=== PATIENT | male | born 1990 | race Caucasian/White ===

== ENCOUNTER 2020-02-05 09:03 | Emergency (ER) | payer BC, OTHER ==
[~2020-02-05] VITALS: Ht 187.9 cm; Wt 141.1 kg
--- OUTSIDE RECORDS SUMMARY | 2020-02-05 09:09 | XMS REPORT ---
Author Author Ric DUEÑAS Organization [facility] IN Address [address] [place] [address] Care Team Providers Care Pipe Stem Sawyer Name Role Phone TAI DUEÑAS Unavailable PROBLEMS Unknown Problems ALLERGIES No Information ENCOUNTERS Encounter Location Date Diagnosis [facility] [address] [id number] [place], [place] [id number] Jun, Encounter for immunization Z23 [facility] [address] [id number] [place], [place] [phone] May, Encounter for immunization Z23 IMMUNIZATIONS Vaccine Route Administration Date Status TDAP (BOOSTRIX) IM Intramuscular Jun 11, 2017 Administered SOCIAL HISTORY Never Assessed REASON FOR VISIT Immunization(s); Indu Ryder RN PLAN OF CARE VITAL SIGNS MEDICATIONS Unknown Medications RESULTS No Results PROCEDURES Procedure Date Ordered Result Body Site TDAP (BOOSTRIX) Jun 11, 2017 SINGLE IMMUNIZATION ADMIN Jun 11, 2017 INSTRUCTIONS MEDICATIONS ADMINISTERED No Known Medications
--- OUTSIDE RECORDS SUMMARY | 2020-02-05 09:09 | XMS REPORT ---
Author Author Ric DUEÑAS Organization [facility] IN Address [address] [place] [address] Care Team Providers Care Vocational Training Instructor Name Role Phone TAI DUEÑAS Unavailable PROBLEMS Unknown Problems ALLERGIES No Information ENCOUNTERS Encounter Location Date Diagnosis [facility] [address] [id number] [place], [place] [phone] Jun, Encounter for immunization Z23 [facility] [address] [id number] [place], [place] [phone] May, Encounter for immunization Z23 IMMUNIZATIONS Vaccine Route Administration Date Status FLUARIX QUAD (3 AND UP) 2016 IM Intramuscular Jun 08, 2017 Ad ministered SOCIAL HISTORY Never Assessed REASON FOR VISIT Flu shot; Indu Ryder RN PLAN OF CARE VITAL SIGNS MEDICATIONS Unknown Medications RESULTS No Results PROCEDURES Procedure Date Ordered Result Body Site FLUARIX QUAD (3 AND UP) 2017 Jun 08, 2017 SINGLE IMMUNIZATION ADMIN Jun 08, 2017 INSTRUCTIONS MEDICATIONS ADMINISTERED No Known Medications
--- OUTSIDE RECORDS SUMMARY | 2020-02-05 09:09 | XMS REPORT | Continuity of Care Document ---
Author Organization Unknown Address Unknown Phone Unavailable Allergies There is no data. Medications There is no data. Problems There is no data. Procedures There is no data. Results There is no data. Encounters ACCT No. Visit Date/Time Discharge Status Pt. Type Provider Facility Loc./Unit Complaint [id number] 09/09/2018 10:00:00 09/09/2018 23:59: 59 CLS Outpatient [facility] [id number] 02/05/2020 09:04:[address] Emergency LETI SHEPARD, LISA Bragg [facility] BACK PAIN
--- OUTSIDE RECORDS SUMMARY | 2020-02-05 09:09 | XMS REPORT ---
Author Author Ric DUEÑAS Organization [facility] Address [address] [place] [address] Care Team Providers Care Road Worker Name Role Phone TAI DUEÑAS Unavailable PROBLEMS Unknown Problems ALLERGIES No Information ENCOUNTERS Encounter Location Date Diagnosis [facility] [address] [id number] [facility] [place] [id number] May, Encounter for immunization Z23 [facility] [address] [id number] [facility] [place] [id number] Apr, Other acute nonsuppurative otitis media of right ear, recurrence not specified H65.191 [facility] [address] [id number] [facility] [place] [phone] Jun, Encounter for immunization Z23 [facility] [address] [id number] [place] [phone] May, Encounter for immunization Z23 IMMUNIZATIONS Vaccine Route Administration Date Status FLULAVAL QUAD 0.5ML (6 MO & UP) 2017 IM Intramuscular May 13 18 Administered SOCIAL HISTORY Never Assessed REASON FOR VISIT Flu Shot.; RAINA Cox BSN PLAN OF CARE VITAL SIGNS MEDICATIONS Unknown Medications RESULTS No Results PROCEDURES Procedure Date Ordered Result Body Site FLULAVAL QUAD 0.5ML (6 MO AND UP) 2018 May 13, 2018 SINGLE IMMUNIZATION ADMIN May 13, 2018 INSTRUCTIONS MEDICATIONS ADMINISTERED No Known Medications MEDICAL (GENERAL) HISTORY Type Description Date Surgical History No know Surgical history
--- OUTSIDE RECORDS SUMMARY | 2020-02-05 09:09 | XMS REPORT ---
Author Ric Ramos Organization [facility] Address [address] [place] [address] Care Team Providers Care Ball Worker Name Role Phone TAI DUEÑAS Unavailable PROBLEMS Unknown Problems ALLERGIES No Known Allergies ENCOUNTERS Encounter Location Date Diagnosis [facility] [address] [id number] [facility] [place] [id number] Apr, Other acute nonsuppurative otitis media of right ear, recurrence not specified H65.191 [facility] [address] [id number] [place] [id number] Jun, Encounter for immunization Z23 [facility] [address] [id number] [place] [phone] May, Encounter for immunization Z23 IMMUNIZATIONS No Known Immunizations SOCIAL HISTORY Never Assessed REASON FOR VISIT C/o right ear pain and hearing loss for 3-4 days.; RAINA Cox BSN PLAN OF CARE Activity Details Follow Up prn Reason: VITAL SIGNS Height 72 in 2018-04-22 Weight 273.6 lbs 2018-04-22 Temperature 97.8 degrees Fahrenheit 2018-04-22 Heart Rate 88 bpm 2018-04-22 Respiratory Rate 18 2018-04-22 BMI 37.10 kg/m2 2018-04-22 Blood pressure systolic 124 mmHg 2018-04-22 Blood pressure diastolic 82 mmHg 2018-04-22 MEDICATIONS Medication Instructions Dosage Frequency Start Date End Date Duration S tatus Amoxicillin 500 MG Orally every 12 hrs 2 capsule 12h 13 Apr, 201 8 20 Apr, 2018 7 day(s) Active RESULTS No Results PROCEDURES No Known procedures INSTRUCTIONS MEDICATIONS ADMINISTERED No Known Medications MEDICAL (GENERAL) HISTORY Type Description Date Surgical History No know Surgical history
--- OUTSIDE RECORDS SUMMARY | 2020-02-05 09:09 | XMS REPORT ---
Author Author Ric COLINDRES [facility] [place] Address [address] [place] [address] Care Team Providers Care Nitrocellulose Maker Name Role Phone WILL COLINDRES Unavailable PROBLEMS Type Condition ICD9-CM Code [id number] Code Onset Dates Condition S tatus SNOMED Code Problem Elevated blood pressure I10 Active [id number] ALLERGIES No Known Allergies ENCOUNTERS Encounter Location Date Diagnosis [facility] [address] [id number] [place] [phone] Jul, Strep tonsillitis J03.00 ; Pharyngitis J 02.9 and Elevated blood pressure I10 [facility] [address] [id number] [place] [id number] May, URI with cough and congestion J06.9 and Acute bacterial conjunctivitis of right eye H10.31 [facility] [address] [id number] [place] [id number] May, Encounter for immunization Z23 [facility] [address] [id number] [place] [id number] Apr, Other acute nonsuppurative otitis media of right ear, recurrence not specified H65.191 [facility] [address] [id number] [place] [id number] Jun, Encounter for immunization Z23 [facility] [address] [id number] [place] [phone] May, Encounter for immunization Z23 IMMUNIZATIONS No Known Immunizations SOCIAL HISTORY Never Assessed REASON FOR VISIT sore throat since yesterday.; RAINA Cox BSN PLAN OF CARE Activity Details Follow Up if not improving or with pcp for regular fu . if not improving with PCP or reg follow up Reason: VITAL SIGNS Height 72 in 2018-07-12 Weight 286 lbs 2018-07-12 Temperature 98.3 degrees Fahrenheit 2018-07-12 Heart Rate 114 bpm 2018-07-12 Respiratory Rate 18 2018-07-12 BMI 38.78 kg/m2 2018-07-12 Blood pressure systolic 128 mmHg 2018-07-12 Blood pressure diastolic 92 mmHg 2018-07-12 MEDICATIONS Medication Instructions Dosage Frequency Start Date End Date Duration S tatus Amoxicillin 500 mg Orally 2 times a day 1 capsule 12h Jul, 10 day(s) Active Sudafed 30 MG Orally every 6 hrs 1 tablet as needed 6h Active RESULTS No Results PROCEDURES No Known procedures INSTRUCTIONS MEDICATIONS ADMINISTERED No Known Medications MEDICAL (GENERAL) HISTORY Type Description Date Surgical History No know Surgical history
--- NOTE | 2020-02-05 09:29 | ED GU-Male ---
General Chief Complaint: - Urinary Stated Complaint: BACK PAIN Nursing Triage Note: PT AMB TO TRIAGE WITH COMPLAINT OF LEFT SIDE FLANK PAIN, TESTICLE PAIN, AND NAUSEA. FEELS LIKE SOMEONE IS SQUEEZING HIS KIDNEY. PAIN STARTED AROUND MIDNIGHT. HAS TRIED TO HOT SHOWERS, MOTRIN, ETC. WITH NO RELIEF. WAS ABLE TO URINATE ONCE, BUT HAS HAD DIFFICULTY SINCE. Source: patient Exam Limitations: no limitations (GISELA RHOADES,) History of Present Illness Date Seen by Provider: Feb 05, 2020 Time Seen by Provider: 09:15 Initial Comments Mr. Patton is here to the ER for pain on his left flank. This pain woke him up this am around 12-1. He believes he has a kidney stone. He describes the pain as shooting and feels like "someone is squeezing [his] kidney and nards". The pain is only is his back and he rates it an 8/10 on the pain scale. He says this pain is constant. He also admits to nausea and vomiting, he "can't keep water down". Last emesis was 1.5 hours ago. He has tried Motrin, hot showers, heating pad, and drinking fluids but nothing has helped. The hot shower helped 1x, but repeat shower did not touch the pain. Denies any change in bowel movements, blood in stool or urine, dysuria, hematuria, or incontinence. He does notice increased urge to urinate, but when he does attempt to go, nothing comes out. Timing/Duration: this morning Severity/Quality: severe Location: left flank, groin Radiation: none Activities at Onset: sleep Prior Genitourinary Problems: none Modifying Factors: Worsens With Breathing, Worsens With Movement; Improves With Other ("everything" makes his pain worse) Associated Symptoms: No abdominal pain, No dysuria; lower back pain, nausea/vomiting; No urinary frequency (GISELA RHOADES,) Allergies and Home Medications Allergies Coded Allergies: No Known Drug Allergies (Unverified , 02/05/20) Patient Home Medication List Home Medication List Reviewed: Yes (GISELA RHOADES,) Review of Systems Review of Systems Constitutional: no symptoms reported EENTM: no symptoms reported Respiratory: short of breath (due to pain only) Cardiovascular: no symptoms reported Gastrointestinal: nausea, vomiting Genitourinary: denies dysuria, denies frequency; flank pain; denies hematuria, denies incontinence, denies pain; urgency Musculoskeletal: back pain Skin: no symptoms reported Psychiatric/Neurological: No Symptoms Reported Endocrine: No Symptoms Reported Hematologic/Lymphatic: No Symptoms Reported (GISELA RHOADES,) Past Znmgncp-[id number]-Bpnliw Hx Patient Social History Alcohol Use: Denies Use Recreational Drug Use: No Smoking Status: Never a Smoker Recent Foreign Travel: No Contact w/Someone Who Travel: No Recent Infectious Disease Expo: No Recent Hopitalizations: No (GISELA RHOADES,) Immunizations Up To Date Tetanus Booster (TDap): Unknown PED Vaccines UTD: Yes (GISELA RHOADES) Seasonal Allergies Seasonal Allergies: No (GISELA RHOADES) Past Medical History Surgeries: No Respiratory: No Cardiac: No Neurological: No Genitourinary: No Gastrointestinal: No Musculoskeletal: No Endocrine: No HEENT: No Cancer: No Psychosocial: No Integumentary: No Blood Disorders: No (GISELA RHOADES) Family Medical History Cancer (paternal side has hx of kidney cancer), Hypertension, Renal Disease (maternal grandfather on dialysis prior to ) (GISELA RHOADES,) Physical Exam Vital Signs Vital Signs - First Documented 02/05/20 09:07 Temp 36.9 Pulse 92 Resp 20 B/P (MAP) 134/101 (112) Pulse Ox 98 O2 Delivery Room Air (LISA LANDEROS MD) Vital Signs Capillary Refill : Less Than 3 Seconds (GISELA RHOADES,) Height, Weight, BMI Height: '" Weight: lbs. oz. kg; 39.00 BMI Method: General Appearance: WD/WN, moderate distress HEENT: PERRL/EOMI Neck: full range of motion Cardiovascular: regular rate, rhythm, no murmur Respiratory: lungs clear, normal breath sounds, no respiratory distress, no accessory muscle use Gastrointestinal: normal bowel sounds, soft; No guarding, No rebound; tenderness (mild tenderness to deep palpation in LLQ) Back: CVA tenderness (L) (mild on percussion) Neurologic/Psychiatric: alert, oriented x 3 Skin: normal color, warm/dry (GISELA RHOADES,) Progress/Results/Core Measures Suspected Sepsis Recent Fever Within 48 Hours: No Infection Criteria Present: None New/Unexplained Altered Menta: No Sepsis Screen: No Definite Risk SIRS Temperature: Pulse: 92 Respiratory Rate: 20 Blood Pressure 134 /101 Mean: 112 (GISELA RHOADES,) Results/Orders Lab Results Laboratory Tests Test 02/05/20 09:39 02/05/20 10:32 Range/Units White Blood Count 14.1 H 4.3-11.0 10^3/uL Red Blood Count 5.19 4.35-5.85 10^6/uL Hemoglobin 15.6 13.3-17.7 G/DL Hematocrit 43 40-54 % Mean Corpuscular Volume 83 80-99 FL Mean Corpuscular Hemoglobin 30 25-34 PG Mean Corpuscular Hemoglobin Concent 36 32-36 G/DL Red Cell Distribution Width 13.0 10.0-14.5 % Platelet Count 238 130-400 10^3/uL Mean Platelet Volume 9.5 7.4-10.4 FL Neutrophils (%) (Auto) 88 H 42-75 % Lymphocytes (%) (Auto) 9 L 12-44 % Monocytes (%) (Auto) 3 0-12 % Eosinophils (%) (Auto) 0 0-10 % Basophils (%) (Auto) 0 0-10 % Neutrophils # (Auto) 12.4 H 1.8-7.8 X 10^3 Lymphocytes # (Auto) 1.2 1.0-4.0 X 10^3 Monocytes # (Auto) 0.5 0.0-1.0 X 10^3 Eosinophils # (Auto) 0.0 0.0-0.3 10^3/uL Basophils # (Auto) 0.0 0.0-0.1 10^3/uL Neutrophils % (Manual) 89 % Lymphocytes % (Manual) 9 % Monocytes % (Manual) 2 % Blood Morphology Comment NORMAL Sodium Level 139 135-145 MMOL/L Potassium Level 3.7 3.6-5.0 MMOL/L Chloride Level 107 98-107 MMOL/L Carbon Dioxide Level 20 L 21-32 MMOL/L Anion Gap 12 5-14 MMOL/L Blood Urea Nitrogen 13 7-18 MG/DL Creatinine 1.14 0.60-1.30 MG/DL Estimat Glomerular Filtration Rate > 60 BUN/Creatinine Ratio 11 Glucose Level 136 H 70-105 MG/DL Calcium Level 9.7 8.5-10.1 MG/DL Corrected Calcium 9.3 8.5-10.1 MG/DL Total Bilirubin 0.7 0.1-1.0 MG/DL Aspartate Amino Transf (AST/SGOT) 47 H 5-34 U/L Alanine Aminotransferase (ALT/SGPT) 119 H 0-55 U/L Alkaline Phosphatase 84 40-136 U/L Total Protein 7.7 6.4-8.2 GM/DL Albumin 4.5 3.2-4.5 GM/DL Urine Color YELLOW Urine Clarity CLEAR Urine pH 6.5 5-9 Urine Specific Ballantine 1.020 1.016-1.022 Urine Protein TRACE H NEGATIVE Urine Glucose (UA) NEGATIVE NEGATIVE Urine Ketones NEGATIVE NEGATIVE Urine Nitrite NEGATIVE NEGATIVE Urine Bilirubin NEGATIVE NEGATIVE Urine Urobilinogen 0.2 < = 1.0 MG/DL Urine Leukocyte Esterase NEGATIVE NEGATIVE Urine RBC (Auto) NEGATIVE NEGATIVE Urine RBC NONE /HPF Urine WBC NONE /HPF Urine Squamous Epithelial Cells RARE /HPF Urine Crystals NONE /LPF Urine Bacteria NEGATIVE /HPF Urine Casts NONE /LPF Urine Mucus NEGATIVE /LPF Urine Culture Indicated NO (LISA LANDEROS MD) My Orders Orders - LISA LANDEROS MD Ua Culture If Indicated (02/05/20 09:21) Ed Iv/Invasive Line Start (02/05/20 09:31) Ns Iv 1000 Ml (Sodium Chloride 0.9%) (02/05/20 09:31) Cbc With Automated Diff (02/05/20 09:31) Comprehensive Metabolic Panel (02/05/20 09:31) Ketorolac Injection (Toradol Injection) (02/05/20 09:45) Ondansetron Injection (Zofran Injectio (02/05/20 09:45) Manual Differential (02/05/20 09:39) Ct Abd/Pelvis Wo(Kidney Stone) (02/05/20 11:00) (LISA LANDEROS MD) Medications Given in ED Current Medications Medications Dose Ordered Sig/Galen Route Start Time Stop Time Status Last Admin Dose Admin Ketorolac Tromethamine 30 mg ONCE ONCE IVP 02/05/20 09:45 02/05/20 09:46 DC 02/05/20 09:41 30 MG Ondansetron HCl 8 mg ONCE ONCE IVP 02/05/20 09:45 02/05/20 09:46 DC 02/05/20 09:40 8 MG (LISA LANDEROS MD) Vital Signs/I&O 02/05/20 09:07 Temp 36.9 Pulse 92 Resp 20 B/P (MAP) 134/101 (112) Pulse Ox 98 O2 Delivery Room Air (LISA LANDEROS MD) Vital Signs/I&O Capillary Refill : Less Than 3 Seconds (GISELA RHOADES,) Blood Pressure Mean: 112 Departure Impression Primary Impression: Left ureteral stone Additional Impression: Left sided abdominal pain Disposition: HOME, SELF-CARE Condition: Improved Departure-Patient Inst. Decision time for Depature: 11:29 (LISA LANDEROS MD) Referrals: NO,LOCAL PHYSICIAN (PCP/Family) Primary Care Physician Patient Instructions: Kidney Stones (DC) Add. Discharge Instructions: You have a small kidney stone that has dropped into your left ureter. You may still have some pain until the stone passes and then some lingering pain as your ureter heals. You may use ibuprofen up to 600 mg every 6 hours as needed for pain. Add hydrocodone as prescribed for pain not controlled by ibuprofen. Uses Zofran (ondansetron) as prescribed for nausea and vomiting. Strain your urine and examined with a filter closely to determine when the stone has dropped. Bring the stone with you to follow-up appointment your primary care doctor. Drink plenty of clear liquids. Return to care or call if you have any further problems or complications. All discharge instructions reviewed with patient and/or family. Voiced understanding. Scripts Ondansetron (Ondansetron Odt) 4 Mg Tab.rapdis 4 MG SL Q4H PRN for NAUSEA/VOMITING, #10 TAB Prov: LISA LANDEROS MD 02/05/20 GISELA RHOADES, Feb 05, 2020 09:29 LISA LANDEROS MD Feb 05, 2020 11:34
[2020-02-05] MEDS ORDERED: NS IV 1000 ML 1,000 ML IV SCH (09:31)
[2020-02-05] MEDS ORDERED: KETOROLAC 30 MG/ML VIAL IVP ONE (09:45)
[2020-02-05] MEDS ORDERED: ONDANSETRON 4 MG/2 ML (SDV) Z0FRAN IVP ONE (09:45)
[2020-02-05 09:51] LABS: BASOPHILS % (AUTO) 0 % (0-10); EOSINOPHILS % (AUTO) 0 % (0-10); HEMATOCRIT 43 % (40-54); HEMOGLOBIN 15.6 G/DL (13.3-17.7); LYMPHOCYTES # (AUTO) 1.2 X 10^3 (1.0-4.0); LYMPHOCYTES % (AUTO) 9 % (12-44); MEAN CORPUSCULAR HEMOGLOBIN 30 PG (25-34); MEAN CORPUSCULAR HGB CONC 36 G/DL (32-36); MEAN CORPUSCULAR VOLUME 83 FL (80-99); MEAN PLATELET VOLUME 9.5 FL (7.4-10.4); MONOCYTES # (AUTO) 0.5 X 10^3 (0.0-1.0); MONOCYTES % (AUTO) 3 % (0-12); NEUTROPHILS # (AUTO) 12.4 X 10^3 (1.8-7.8); NEUTROPHILS % (AUTO) 88 % (42-75); PLATELET COUNT 238 10^3/uL (130-400); WHITE BLOOD COUNT 14.1 10^3/uL (4.3-11.0)
[2020-02-05 10:03] LABS: ALBUMIN 4.5 GM/DL (3.2-4.5); CHLORIDE 107 MMOL/L (98-107); POTASSIUM 3.7 MMOL/L (3.6-5.0); SODIUM 139 MMOL/L (135-145)
[2020-02-05 10:04] LABS: CALCIUM 9.7 MG/DL (8.5-10.1)
[2020-02-05 10:06] LABS: GLUCOSE 136 MG/DL (70-105); TOTAL PROTEIN 7.7 GM/DL (6.4-8.2)
[2020-02-05 10:07] LABS: BILIRUBIN,TOTAL 0.7 MG/DL (0.1-1.0); CARBON DIOXIDE 20 MMOL/L (21-32)
[2020-02-05 10:09] LABS: ALKALINE PHOSPHATASE 84 U/L (40-136); CREATININE SERUM 1.14 MG/DL (0.60-1.30); GFR ESTIMATED > 60
[2020-02-05 10:10] LABS: BUN/CREATININE RATIO 11
[2020-02-05 10:12] LABS: ALANINE AMINOTRANSFERASE 119 U/L (0-55)
[2020-02-05 10:39] LABS: LYMPHOCYTES % (MANUAL) 9 %; MONOCYTES % (MANUAL) 2 %; NEUTROPHILS % (MANUAL) 89 %; RBC MORPH NORMAL
[2020-02-05 10:40] LABS: BILIRUBIN,URINE NEGATIVE (NEGATIVE); CLARITY,URINE CLEAR; COLOR,URINE YELLOW; GLUCOSE, URINE (UA) NEGATIVE (NEGATIVE); KETONES,URINE NEGATIVE (NEGATIVE); LEUKOCYTE ESTERASE ,URINE NEGATIVE (NEGATIVE); NITRITE,URINE NEGATIVE (NEGATIVE); PH,URINE 6.5 (5-9); PROTEIN,URINE TRACE (NEGATIVE)
[2020-02-05 10:55] LABS: BACTERIA,URINE NEGATIVE /HPF; SQUAMOUS EPITHELIAL CELL,UR RARE /HPF
--- NOTE | 2020-02-05 11:20 | Diagnostic Imaging Report ---
CT ABD/PELVIS WO(KIDNEY STONE) TECHNIQUE: Unenhanced CT imaging of the abdomen and pelvis was performed. 2-D reformats are created and submitted for interpretation. Automatic exposure controls were utilized to optimize patient dose. INDICATION: Left flank pain COMPARISON: None available. FINDINGS: Evaluation of the abdominal viscera is mildly limited without contrast. Lower chest: The lung bases are clear. No pericardial or pleural effusion. Peritoneum: No free intraperitoneal air or fluid. Liver and biliary system: Diffuse hepatic steatosis. No focal hepatic lesion. The gallbladder is normal. No biliary duct dilation. Spleen and Pancreas: Spleen is normal. Unenhanced pancreas is grossly normal. Adrenals: Normal. tract: Mild left hydronephrosis and hydroureter due to a 2 mm partially obstructing stone at the left UVJ. No right-sided renal or ureteral calculi. Urinary bladder is decompressed, limiting assessment. GI tract: Stomach is decompressed. No bowel obstruction. No pericolonic inflammatory changes. Normal appendix. Vasculature and Lymph nodes: Normal caliber aorta. No abdominal or pelvic lymphadenopathy. Musculoskeletal: No concerning osseous lesion. IMPRESSION: 1. Mild left hydronephrosis due to a 2 mm obstructing stone at the left UVJ. Dictated by: Dictated on workstation # [id number]
[2020-02-05] MEDS ORDERED: ONDA4TAB11 SL (11:35)
[2020-02-05] MEDS ORDERED: HYDR-83 PO (11:35)
[2020-02-05 11:51] VITALS: BP 137/99
--- NOTE | 2020-02-05 11:54 | NUR ---
Discharge instructions discussed with the patient, awaiting strainer for urine.
== END 2020-02-05 12:04 | disposition home or self-care (01) ==
LOC: ER 09:04
DX: N13.2 Hydronephrosis with renal and ureteral calculous obstruction (principal); Z82.49 Family history of ischemic heart disease and other diseases of the circulatory system
CPT/HCPCS: 36415; 74176; 80053; 81000; 85007; 85027

== ENCOUNTER 2021-06-01 13:45 | Emergency (ER) | payer BC ==
[~2021-06-01] VITALS: Ht 185 cm; Wt 142.0 kg
[~2021-06-01 13:45] MED LIST: ACHD5005 PO; ONDA4TAB11 SL
[2021-06-01] MEDS ORDERED: ONDANSETRON 4 MG/2 ML (SDV) Z0FRAN ONE (13:57)
[2021-06-01] MEDS ORDERED: LACTATED RINGERS 1,000 ML IV ONE ×3 (13:58→15:00)
[2021-06-01] MEDS ORDERED: KETOROLAC 30 MG/ML VIAL ONE (13:58)
[2021-06-01] MEDS ORDERED: ONDANSETRON 4 MG/2 ML (SDV) Z0FRAN IVP ONE (14:00)
[2021-06-01] MEDS ORDERED: KETOROLAC 30 MG/ML VIAL IVP ONE (14:00)
[2021-06-01 14:01] LABS: BASOPHILS # (AUTO) 0.1 10^3/uL (0.0-0.1); BASOPHILS % (AUTO) 0 % (0-10); EOSINOPHILS # (AUTO) 0.1 10^3/uL (0.0-0.3); EOSINOPHILS % (AUTO) 1 % (0-10); HEMATOCRIT 48 % (40-54); HEMOGLOBIN 16.9 g/dL (13.3-17.7); LYMPHOCYTES # (AUTO) 2.4 10^3/uL (1.0-4.0); LYMPHOCYTES % (AUTO) 15 % (12-44); MEAN CORPUSCULAR HEMOGLOBIN 30 pg (25-34); MEAN CORPUSCULAR HGB CONC 36 g/dL (32-36); MEAN CORPUSCULAR VOLUME 84 fL (80-99); MEAN PLATELET VOLUME 9.9 fL (9.0-12.2); MONOCYTES # (AUTO) 0.8 10^3/uL (0.0-1.0); MONOCYTES % (AUTO) 5 % (0-12); NEUTROPHILS # (AUTO) 12.2 10^3/uL (1.8-7.8); NEUTROPHILS % (AUTO) 78 % (42-75); PLATELET COUNT 240 10^3/uL (130-400); WHITE BLOOD COUNT 15.7 10^3/uL (4.3-11.0)
[2021-06-01 14:10] LABS: ALBUMIN 4.7 GM/DL (3.2-4.5)
[2021-06-01 14:11] LABS: CHLORIDE 103 MMOL/L (98-107); SODIUM 139 MMOL/L (135-145)
[2021-06-01] MEDS ORDERED: morphine INJ 10 MG/ML 1ML (SYR OR VIAL) IVP STA (14:11)
[2021-06-01 14:12] LABS: CALCIUM 10.4 MG/DL (8.5-10.1)
[2021-06-01 14:13] LABS: GLUCOSE 151 MG/DL (70-105)
[2021-06-01] MEDS ORDERED: morphine INJ 10 MG/ML 1ML (SYR OR VIAL) ONE (14:13)
[2021-06-01 14:14] LABS: CARBON DIOXIDE 20 MMOL/L (21-32)
[2021-06-01 14:16] LABS: ALKALINE PHOSPHATASE 95 U/L (40-136)
[2021-06-01 14:17] LABS: CREATININE SERUM 0.99 MG/DL (0.60-1.30); GFR ESTIMATED 87
[2021-06-01 14:18] LABS: BUN/CREATININE RATIO 17
[2021-06-01 14:19] LABS: ALANINE AMINOTRANSFERASE 136 U/L (0-55)
[2021-06-01 14:41] LABS: EOSINOPHILS % (MANUAL) 1 %; LYMPHOCYTES % (MANUAL) 16 %; MONOCYTES % (MANUAL) 4 %; NEUTROPHILS % (MANUAL) 79 %; RBC MORPH NORMAL
[2021-06-01 15:33] LABS: BILIRUBIN,URINE NEGATIVE (NEGATIVE); CLARITY,URINE CLEAR; COLOR,URINE YELLOW; GLUCOSE, URINE (UA) NEGATIVE (NEGATIVE); KETONES,URINE 2+ (NEGATIVE); LEUKOCYTE ESTERASE ,URINE NEGATIVE (NEGATIVE); NITRITE,URINE NEGATIVE (NEGATIVE); PH,URINE 6.5 (5-9); PROTEIN,URINE TRACE (NEGATIVE)
[2021-06-01 15:40] LABS: AMORPHOUS SEDIMENT,UR FEW AMOR URATES /LPF; BACTERIA,URINE TRACE /HPF; RBC,URINE 0-2 /HPF
[2021-06-01] MEDS ORDERED: ONDA4TAB11 PO (16:27)
[2021-06-01] MEDS ORDERED: ACHD5005 PO (16:27)
--- NOTE | 2021-06-01 16:30 | ED Abdominal Pain ---
General Chief Complaint: Back Problems Stated Complaint: LEFT FLANK PAIN Nursing Triage Note: PT CO OF L FLANK PAIN TO L TESTICLE. 05/19 HAS HX OF KIDNEY STONES. STARTED 3 HOURS AGO Source of Information: Patient Exam Limitations: No Limitations History of Present Illness Date Seen by Provider: Jun 01, 2021 Time Seen by Provider: 13:48 Initial Comments This 31-year-old young man presents to the emergency room with abrupt onset of pain in the left flank that started about 3 hours ago. The pain then moved around and radiated toward the left groin and testicle. This is very reminiscent of a kidney stone he had back in January. He passed that kidney stone and visualized in a strainer. He has been vomiting this morning as well. He tried to manage the symptoms at home but could not. He denies any fever or other symptoms. Allergies and Home Medications Allergies Coded Allergies: No Known Drug Allergies (Unverified , 02/05/20) Patient Home Medication List Home Medication List Reviewed: Yes Hydrocodone/Acetaminophen (Hydrocodone-Acetamin 5-325 mg) 1 Each Tablet, 1 EACH PO Q4H PRN for PAIN-BREAKTHROUGH Prescribed by: LISA JOAQUIN on 02/05/20 1135 Hydrocodone/Acetaminophen (Hydrocodone-Acetamin 5-325 mg) 1 Each Tablet, 1-2 TAB PO Q6H PRN for PAIN-MODERATE (5-7) Prescribed by: LISA JOAQUIN on 06/01/21 1628 Ondansetron (Ondansetron Odt) 4 Mg Tab.rapdis, 4 MG SL Q4H PRN for NAUSEA/VOMITING Prescribed by: LISA JOAQUIN on 02/05/20 1135 Ondansetron (Ondansetron Odt) 4 Mg Tab.rapdis, 4 MG PO Q4H PRN for NAUSEA/VOMITING Prescribed by: LISA JOAQUIN on 06/01/21 1627 Review of Systems Review of Systems Constitutional: no symptoms reported EENTM: No Symptoms Reported Respiratory: No Symptoms Reported Cardiovascular: No Symptoms Reported Gastrointestinal: See HPI Genitourinary: See HPI Musculoskeletal: no symptoms reported Skin: no symptoms reported Psychiatric/Neurological: No Symptoms Reported Endocrine: No Symptoms Reported Hematologic/Lymphatic: No Symptoms Reported Past Fzdehmi-Cznvha-Nbkmfo Hx Patient Social History Tobacco Use?: No Substance use?: No Alcohol Use?: Yes Alcohol Frequency: Rarely Pt feels they are or have been: No Immunizations Up To Date Tetanus Booster (TDap): Unknown PED Vaccines UTD: Yes Second COVID19 Vaccination Marcelo: PT STATES HAS HAD BOTH MODERNA SHOTS Seasonal Allergies Seasonal Allergies: No Past Medical History Surgeries: No Respiratory: No Cardiac: No Neurological: No Genitourinary: Yes Kidney Stones Gastrointestinal: No Musculoskeletal: No Endocrine: No HEENT: No Cancer: No Psychosocial: No Integumentary: No Blood Disorders: No Family Medical History Cancer, Hypertension, Renal Disease Physical Exam Vital Signs Vital Signs - First Documented 06/01/21 13:49 Temp 36.6 Pulse 77 Resp 18 B/P (MAP) 162/103 (122) Pulse Ox 99 O2 Delivery Room Air Capillary Refill : Less Than 3 Seconds Height/Weight/BMI Height: '" Weight: lbs. oz. 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 nml as tested, no motor/sensory deficits, alert, normal mood/affect, oriented x 3 Skin: normal color, warm/dry Progress/Results/Core Measures Results/Orders Lab Results Laboratory Tests Test 06/01/21 13:53 06/01/21 15:27 Range/Units White Blood Count 15.7 H 4.3-11.0 10^3/uL Red Blood Count 5.65 H 4.30-5.52 10^6/uL Hemoglobin 16.9 13.3-17.7 g/dL Hematocrit 48 40-54 % Mean Corpuscular Volume 84 80-99 fL Mean Corpuscular Hemoglobin 30 25-34 pg Mean Corpuscular Hemoglobin Concent 36 32-36 g/dL Red Cell Distribution Width 12.0 10.0-14.5 % Platelet Count 240 130-400 10^3/uL Mean Platelet Volume 9.9 9.0-12.2 fL Immature Granulocyte % (Auto) 0 % Neutrophils (%) (Auto) 78 H 42-75 % Lymphocytes (%) (Auto) 15 12-44 % Monocytes (%) (Auto) 5 0-12 % Eosinophils (%) (Auto) 1 0-10 % Basophils (%) (Auto) 0 0-10 % Neutrophils # (Auto) 12.2 H 1.8-7.8 10^3/uL Lymphocytes # (Auto) 2.4 1.0-4.0 10^3/uL Monocytes # (Auto) 0.8 0.0-1.0 10^3/uL Eosinophils # (Auto) 0.1 0.0-0.3 10^3/uL Basophils # (Auto) 0.1 0.0-0.1 10^3/uL Immature Granulocyte # (Auto) 0.1 0.0-0.1 10^3/uL Neutrophils % (Manual) 79 % Lymphocytes % (Manual) 16 % Monocytes % (Manual) 4 % Eosinophils % (Manual) 1 % Blood Morphology Comment NORMAL Sodium Level 139 135-145 MMOL/L Potassium Level 3.0 L 3.6-5.0 MMOL/L Chloride Level 103 98-107 MMOL/L Carbon Dioxide Level 20 L 21-32 MMOL/L Anion Gap 16 H 5-14 MMOL/L Blood Urea Nitrogen 17 7-18 MG/DL Creatinine 0.99 0.60-1.30 MG/DL Estimat Glomerular Filtration Rate 87 BUN/Creatinine Ratio 17 Glucose Level 151 H 70-105 MG/DL Calcium Level 10.4 H 8.5-10.1 MG/DL Corrected Calcium 8.5-10.1 MG/DL Total Bilirubin 1.0 0.1-1.0 MG/DL Aspartate Amino Transf (AST/SGOT) 59 H 5-34 U/L Alanine Aminotransferase (ALT/SGPT) 136 H 0-55 U/L Alkaline Phosphatase 95 40-136 U/L C-Reactive Protein High Sensitivity 0.37 0.00-0.50 MG/DL Total Protein 8.0 6.4-8.2 GM/DL Albumin 4.7 H 3.2-4.5 GM/DL Urine Color YELLOW Urine Clarity CLEAR Urine pH 6.5 5-9 Urine Specific Ridge 1.025 H 1.016-1.022 Urine Protein TRACE H NEGATIVE Urine Glucose (UA) NEGATIVE NEGATIVE Urine Ketones 2+ H NEGATIVE Urine Nitrite NEGATIVE NEGATIVE Urine Bilirubin NEGATIVE NEGATIVE Urine Urobilinogen 0.2 < = 1.0 MG/DL Urine Leukocyte Esterase NEGATIVE NEGATIVE Urine RBC (Auto) TRACE-L H NEGATIVE Urine RBC 0-2 /HPF Urine WBC 2-5 /HPF Urine Crystals PRESENT H /LPF Urine Amorphous Sediment FEW JOVON URATES H /LPF Urine Bacteria TRACE /HPF Urine Casts NONE /LPF Urine Mucus MODERATE H /LPF Urine Culture Indicated NO My Orders Orders - LISA LANDEROS MD Ua Culture If Indicated (06/01/21 13:48) Cbc With Automated Diff (06/01/21 13:54) Comprehensive Metabolic Panel (06/01/21 13:54) Ed Iv/Invasive Line Start (06/01/21 13:54) Lactated Ringers (Lr 1000 Ml Iv Solution (06/01/21 14:00) Ondansetron Injection (Zofran Injectio (06/01/21 14:00) Ketorolac Injection (Toradol Injection) (06/01/21 14:00) Ondansetron Injection (Zofran Injectio (06/01/21 13:57) Ketorolac Injection (Toradol Injection) (06/01/21 13:58) Lactated Ringers (Lr 1000 Ml Iv Solution (06/01/21 13:58) Manual Differential (06/01/21 13:53) Morphine Injection (Morphine Injection (06/01/21 14:11) Morphine Injection (Morphine Injection (06/01/21 14:13) Lactated Ringers (Lr 1000 Ml Iv Solution (06/01/21 15:00) Hs C Reactive Protein (06/01/21 14:53) Medications Given in ED Current Medications Medications Dose Ordered Sig/Galen Route Start Time Stop Time Status Last Admin Dose Admin Ketorolac Tromethamine 30 mg ONCE ONCE IVP 06/01/21 14:00 06/01/21 14:02 DC 06/01/21 14:00 30 MG Lactated Ringer's 1,000 ml @ 0 mls/hr Q0M ONCE IV 06/01/21 14:00 06/01/21 14:02 DC 06/01/21 14:02 1,000 MLS/HR Lactated Ringer's 1,000 ml @ 0 mls/hr Q0M ONCE IV 06/01/21 15:00 06/01/21 15:01 DC 06/01/21 15:16 1,000 MLS/HR Ondansetron HCl 8 mg ONCE ONCE IVP 06/01/21 14:00 06/01/21 14:02 DC 06/01/21 14:02 8 MG Vital Signs/I&O 06/01/21 06/01/21 13:49 16:37 Temp 36.6 36.6 Pulse 77 77 Resp 18 18 B/P (MAP) 162/103 (122) 162/103 Pulse Ox 99 99 O2 Delivery Room Air Room Air Blood Pressure Mean: 122 Progress Progress Note : Progress Note Patient received Zofran for control of his nausea. Pain was treated with Toradol. He did not have sufficient pain relief with Toradol. Morphine was added. He received 2 L of LR. He was noted to have hypokalemia and therefore LR was selected to replace some of his potassium. He was advised to eat and drink items containing potassium this evening to replace this naturally. Urinalysis did not demonstrate any significant hematuria. Patient was re evaluated and we discussed imaging options. He was feeling so well that he would like to defer any imaging until follow-up. He requested some antiemetics and pain medication in case his symptoms rebounded. Otherwise he intends to follow-up with his primary care provider. I am agreeable to this plan. See discharge instructions. Departure Impression Primary Impression: Left flank pain Additional Impressions: Scrotal pain Nausea and vomiting Qualified Codes: R11.2 - Nausea with vomiting, unspecified Disposition: 01 HOME, SELF-CARE Condition: Improved Departure-Patient Inst. Referrals: NO,LOCAL PHYSICIAN (PCP/Family) Primary Care Physician Patient Instructions: Kidney Stones in Adults, Severe Abdominal Pain Add. Discharge Instructions: Drink plenty of clear liquids to stay well-hydrated. Gradually advance your diet with small quantities of bland food as tolerated. Follow-up with your primary care provider next week. Call on Thursday for an appointment. Use your medications as prescribed to help manage symptoms. Strain your urine and bring any stones collected to your follow-up appointment. Call with questions or concerns. Return to the ER if you have worsening symptoms. All discharge instructions reviewed with patient and/or family. Voiced understanding. Scripts Ondansetron (Ondansetron Odt) 4 Mg Tab.rapdis 4 MG PO Q4H PRN for NAUSEA/VOMITING, #10 TAB Prov: LISA LANDEROS MD 06/01/21 Hydrocodone/Acetaminophen (Hydrocodone-Acetamin 5-325 mg) 1 Each Tablet 1-2 TAB PO Q6H PRN for PAIN-MODERATE (5-7), #8 TAB Prov: LISA LANDEROS MD 06/01/21 LISA LANDEROS MD Jun 01, 2021 16:30
[2021-06-01 16:37] VITALS: BP 162/103
== END 2021-06-01 16:37 | disposition home or self-care (01) ==
LOC: EDUNIT# 13:45 → ER 13:47
DX: R10.9 Unspecified abdominal pain (principal); R11.2 Nausea with vomiting, unspecified; N50.82 Scrotal pain; E87.6 Hypokalemia; Z87.442 Personal history of urinary calculi
CPT/HCPCS: 36415; 80053; 81000; 85007; 85027; 86141

== ENCOUNTER 2022-04-14 07:00 | Emergency (ER) | payer BC ==
[~2022-04-14] VITALS: Ht 187.9 cm; Wt 149.6 kg
[~2022-04-14 07:00] MED LIST changes: +ONDA4TAB11 PO
--- NOTE | 2022-04-14 07:16 | ED General ---
General Stated Complaint: GROIN PAIN,N/V,L KIDNEY PAIN Source of Information: Patient Exam Limitations: No Limitations History of Present Illness Date Seen by Provider: Apr 14, 2022 Time Seen by Provider: 07:00 Initial Comments 32-year-old male with history of kidney stones presents for left lower quadrant, left groin and left flank pain. Symptoms started last night. Initially it was dull and he thought it may be gas. In the evening his pain worsened. He is now having sharp stabbing pain in his left lower groin without radiation. No aggravating or alleviating factors. No nausea or vomiting. No fevers or chills. No pain, bloody urine. Normal bowel movements. No penile symptoms. Allergies and Home Medications Allergies Coded Allergies: No Known Drug Allergies (Unverified , 02/05/20) Patient Home Medication List Home Medication List Reviewed: Yes Hydrocodone/Acetaminophen (Hydrocodone-Acetamin 5-325 mg) 1 Each Tablet, 1 EACH PO Q4H PRN for PAIN-BREAKTHROUGH Prescribed by: LISA JOAQUIN on 02/05/20 1135 Hydrocodone/Acetaminophen (Hydrocodone-Acetamin 5-325 mg) 1 Each Tablet, 1-2 TAB PO Q6H PRN for PAIN-MODERATE (5-7) Prescribed by: LISA JOAQUIN on 06/01/21 1628 Ondansetron (Ondansetron Odt) 4 Mg Tab.rapdis, 4 MG SL Q4H PRN for NAUSEA/VOMITING Prescribed by: LISA JOAQUIN on 02/05/20 1135 Ondansetron (Ondansetron Odt) 4 Mg Tab.rapdis, 4 MG PO Q4H PRN for NAUSEA/VOMITING Prescribed by: LISA JOAQUIN on 06/01/21 1627 Review of Systems Review of Systems Constitutional: no symptoms reported EENTM: no symptoms reported Respiratory: no symptoms reported Cardiovascular: no symptoms reported Gastrointestinal: abdominal pain (LLQ) Genitourinary: no symptoms reported Musculoskeletal: no symptoms reported Skin: no symptoms reported Psychiatric/Neurological: No Symptoms Reported Hematologic/Lymphatic: No Symptoms Reported Immunological/Allergic: no symptoms reported Past Qtkpdoy-Mbwmwc-Oorsow Hx Immunizations Up To Date Tetanus Booster (TDap): Unknown PED Vaccines UTD: Yes Second COVID19 Vaccination Marcelo: PT STATES HAS HAD BOTH MODERNA SHOTS Seasonal Allergies Seasonal Allergies: No Past Medical History Surgeries: No Respiratory: No Cardiac: No Neurological: No Genitourinary: Yes Kidney Stones Gastrointestinal: No Musculoskeletal: No Endocrine: No HEENT: No Cancer: No Psychosocial: No Integumentary: No Blood Disorders: No Family Medical History Cancer, Hypertension, Renal Disease Physical Exam Vital Signs Vital Signs - First Documented 04/14/22 07:17 Temp 36.5 Pulse 89 Resp 20 B/P (MAP) 148/113 (125) Pulse Ox 99 O2 Delivery Room Air Capillary Refill : Height, Weight, BMI Height: '" Weight: lbs. oz. kg; 41.00 BMI Method: General Appearance: No Apparent Distress, WD/WN HEENT: PERRL/EOMI, Normal ENT Inspection, Pharynx Normal Neck: Normal Inspection, Non Tender, Supple Respiratory: Chest Non Tender, Lungs Clear, Normal Breath Sounds, No Accessory Muscle Use, No Respiratory Distress Cardiovascular: Regular Rate, Rhythm, No Edema, No Gallop, No JVD, No Murmur, Normal Peripheral Pulses Gastrointestinal: Other (Tenderness palpation left lower quadrant voluntary guarding. No rebound tenderness. No mass organomegaly. No skin changes.) Back: Normal Inspection, No CVA Tenderness, No Vertebral Tenderness Extremity: Normal Capillary Refill, Normal Inspection, Normal Range of Motion, Non Tender, No Calf Tenderness Neurologic/Psychiatric: Alert, Oriented x3, Normal Mood/Affect Skin: Normal Color, Warm/Dry Progress/Results/Core Measures Suspected Sepsis SIRS Temperature: Pulse: Respiratory Rate: Laboratory Tests 04/14/22 07:26: White Blood Count 8.7 Blood Pressure / Mean: Laboratory Tests 04/14/22 07:26: Creatinine 1.01, Platelet Count 208 Results/Orders Lab Results Laboratory Tests Test 04/14/22 07:26 Range/Units White Blood Count 8.7 4.3-11.0 10^3/uL Red Blood Count 5.31 4.30-5.52 10^6/uL Hemoglobin 16.1 13.3-17.7 g/dL Hematocrit 44 40-54 % Mean Corpuscular Volume 82 80-99 fL Mean Corpuscular Hemoglobin 30 25-34 pg Mean Corpuscular Hemoglobin Concent 37 H 32-36 g/dL Red Cell Distribution Width 12.8 10.0-14.5 % Platelet Count 208 130-400 10^3/uL Mean Platelet Volume 9.8 9.0-12.2 fL Immature Granulocyte % (Auto) 1 % Neutrophils (%) (Auto) 59 42-75 % Lymphocytes (%) (Auto) 30 12-44 % Monocytes (%) (Auto) 7 0-12 % Eosinophils (%) (Auto) 3 0-10 % Basophils (%) (Auto) 1 0-10 % Neutrophils # (Auto) 5.2 1.8-7.8 10^3/uL Lymphocytes # (Auto) 2.6 1.0-4.0 10^3/uL Monocytes # (Auto) 0.6 0.0-1.0 10^3/uL Eosinophils # (Auto) 0.2 0.0-0.3 10^3/uL Basophils # (Auto) 0.0 0.0-0.1 10^3/uL Immature Granulocyte # (Auto) 0.1 0.0-0.1 10^3/uL Sodium Level 137 135-145 MMOL/L Potassium Level 3.7 3.6-5.0 MMOL/L Chloride Level 105 98-107 MMOL/L Carbon Dioxide Level 18 L 21-32 MMOL/L Anion Gap 14 5-14 MMOL/L Blood Urea Nitrogen 13 7-18 MG/DL Creatinine 1.01 0.60-1.30 MG/DL Estimat Glomerular Filtration Rate 100 BUN/Creatinine Ratio 13 Glucose Level 234 H 70-105 MG/DL Calcium Level 9.4 8.5-10.1 MG/DL My Orders Orders - PANCHITO FISHER DO Basic Metabolic Panel (04/14/22 07:21) Cbc With Automated Diff (04/14/22 07:21) Ua Culture If Indicated (04/14/22 07:21) Morphine Injection (Morphine Injection (04/14/22 07:30) Ketorolac Injection (Toradol Injection) (04/14/22 07:30) Ondansetron Injection (Zofran Injectio (04/14/22 07:30) Lactated Ringers (Lr 1000 Ml Iv Solution (04/14/22 07:30) Morphine Injection (Morphine Injection (04/14/22 07:30) Ketorolac Injection (Toradol Injection) (04/14/22 07:30) Hydromorphone Injection (Dilaudid Inject (04/14/22 08:00) Lactated Ringers (Lr 1000 Ml Iv Solution (04/14/22 08:30) Medications Given in ED Current Medications Medications Dose Ordered Sig/Galen Route Start Time Stop Time Status Last Admin Dose Admin Hydromorphone HCl 1 mg ONCE ONCE IV 04/14/22 08:00 04/14/22 08:01 DC 04/14/22 07:58 1 MG Ketorolac Tromethamine 30 mg STK-MED ONCE .ROUTE 04/14/22 07:30 04/14/22 07:33 DC 04/14/22 07:34 15 MG Morphine Sulfate 10 mg STK-MED ONCE .ROUTE 04/14/22 07:30 04/14/22 07:33 DC 04/14/22 07:35 4 MG Ondansetron HCl 8 mg ONCE ONCE IVP 04/14/22 07:30 04/14/22 07:31 DC 04/14/22 07:39 8 MG Vital Signs/I&O 04/14/22 07:17 Temp 36.5 Pulse 89 Resp 20 B/P (MAP) 148/113 (125) Pulse Ox 99 O2 Delivery Room Air Capillary Refill : Departure Communication (Admissions) Patient is hemodynamically stable. Despite several liters of fluids he was unable to provide a urine sample. He request to leave without getting 1. He is afebrile and nontoxic in appearance. I believe it is safe for discharge at this time. He denies any fevers needs to return. Advised he should follow up with PCM in 24h if not improved. Impression Primary Impression: Renal colic on left side Additional Impression: Left flank pain Disposition: HOME, SELF-CARE Condition: Stable Departure-Patient Inst. Referrals: NO,LOCAL PHYSICIAN (PCP/Family) Primary Care Physician Patient Instructions: Renal Colic (DC), Flank Pain (DC) Add. Discharge Instructions: Increase your fluids at home. Strain your urine. If you are not better in the next 24 hours I recommend you follow-up with your primary doctor. He was unable to provide a urine here. It is important fissurectomy fevers need to return to the emergency department immediately. Scripts Tamsulosin HCl (Flomax) 0.4 Mg Cap 0.4 MG PO DAILY for 3 Days, #3 CAP Prov: PANCHITO FISHER DO 04/14/22 Ketorolac Tromethamine (Ketorolac Tromethamine) 10 Mg Tablet 10 MG PO Q6H for Pain for 3 Days, #12 TAB Prov: PANCHITO FISHER DO 04/14/22 PANCHITO FISHER DO Apr 14, 2022 07:16
[2022-04-14] MEDS ORDERED: KETOROLAC 15 MG/ML VIAL IVP ONE (07:30)
[2022-04-14] MEDS ORDERED: morphine INJ 4 MG/ML 1 ML (VIAL/SYRINGE) IVP ONE (07:30)
[2022-04-14] MEDS ORDERED: ONDANSETRON 4 MG/2 ML (SDV) Z0FRAN IVP ONE (07:30)
[2022-04-14] MEDS ORDERED: KETOROLAC 30 MG/ML VIAL ONE (07:30)
[2022-04-14] MEDS ORDERED: LACTATED RINGERS 1,000 ML IV SCH ×2 (07:30→08:30)
[2022-04-14] MEDS ORDERED: morphine INJ 10 MG/ML 1ML (SYR OR VIAL) ONE (07:30)
[2022-04-14 07:32] LABS: BASOPHILS % (AUTO) 1 % (0-10); EOSINOPHILS # (AUTO) 0.2 10^3/uL (0.0-0.3); EOSINOPHILS % (AUTO) 3 % (0-10); HEMATOCRIT 44 % (40-54); HEMOGLOBIN 16.1 g/dL (13.3-17.7); LYMPHOCYTES # (AUTO) 2.6 10^3/uL (1.0-4.0); LYMPHOCYTES % (AUTO) 30 % (12-44); MEAN CORPUSCULAR HEMOGLOBIN 30 pg (25-34); MEAN CORPUSCULAR HGB CONC 37 g/dL (32-36); MEAN CORPUSCULAR VOLUME 82 fL (80-99); MEAN PLATELET VOLUME 9.8 fL (9.0-12.2); MONOCYTES # (AUTO) 0.6 10^3/uL (0.0-1.0); MONOCYTES % (AUTO) 7 % (0-12); NEUTROPHILS # (AUTO) 5.2 10^3/uL (1.8-7.8); NEUTROPHILS % (AUTO) 59 % (42-75); PLATELET COUNT 208 10^3/uL (130-400); WHITE BLOOD COUNT 8.7 10^3/uL (4.3-11.0)
[2022-04-14 07:43] LABS: POTASSIUM 3.7 MMOL/L (3.6-5.0)
[2022-04-14 07:44] LABS: CALCIUM 9.4 MG/DL (8.5-10.1)
[2022-04-14 07:48] LABS: CREATININE SERUM 1.01 MG/DL (0.60-1.30)
[2022-04-14] MEDS ORDERED: HYDROmorphone 2 MG/ML VIAL (DILAUDID) IV ONE (08:00)
[2022-04-14] MEDS ORDERED: KETO10TA PO (09:43)
[2022-04-14] MEDS ORDERED: TMSL.4C PO (09:44)
[2022-04-14 10:03] VITALS: BP 130/89
== END 2022-04-14 10:03 | disposition home or self-care (01) ==
LOC: EDUNIT# 07:00 → ER 07:02
DX: N20.0 Calculus of kidney (principal)
CPT/HCPCS: 36415; 80048; 85025